=== PATIENT | male | born 1955 | race Caucasian/White ===

== ENCOUNTER 2020-09-11 08:19 | Day surgery (SDC) | payer MEDICARE ==
[~2020-09-11] VITALS: Ht 168.9 cm; Wt 79.0 kg
[~2020-09-11 08:19] MED LIST: ACETAMINOPHEN 500 MG TABLET PO PRN; BUPIVACAINE-EPI 0.25%-1:200000 MPF 30 ML VIAL. ONE; HYDROmorphone 2 MG/ML VIAL IVP PRN; IV RINGERS,LACTATED 1000ML 1,000 ML IV SCH; LISI1TAB20 PO; MINERAL OIL for SURGERY 10 ML VIAL. MC ONE; MORPHINE SULFATE 2 MG/ML INJ. IVP PRN; MULT-245 PO; OMEG1CAP38 PO; PROCHLORPERAZINE 10 MG/2 ML VIAL. IVP PRN; fentaNYL PF VIAL 100 MCG/2 ML VIAL IVP PRN
[2020-09-11] MEDS ORDERED: ROCURONIUM 50 MG/5 ML VIAL. ONE (08:40)
[2020-09-11] MEDS ORDERED: SEVOFLURANE 61 TO 120 MINUTES. IH ONE (08:40)
[2020-09-11] MEDS ORDERED: KETOROLAC 30 MG/ML VIAL. ONE (08:41)
[2020-09-11] MEDS ORDERED: ONDANSETRON PF 4 MG/2 ML VIAL. ONE ×2 (08:41→12:15)
[2020-09-11] MEDS ORDERED: LIDOCAINE 2% PF 5 ML VIAL. ONE ×2 (08:41→11:23)
[2020-09-11] MEDS ORDERED: DEXAMETHASONE SOD PHOS 4 MG/ML VIAL ONE (08:41)
[2020-09-11] MEDS ORDERED: fentaNYL PF VIAL 100 MCG/2 ML VIAL ONE (08:41)
[2020-09-11] MEDS ORDERED: PROPOFOL 10 MG/ML (20ML) VIAL. IV ONE (08:41)
[2020-09-11] MEDS ORDERED: NEOSTIGMINE METHYLSULFATE 5 MG/5 ML SYRINGE. ONE (08:42)
[2020-09-11] MEDS ORDERED: GLYCOPYRROLATE 1 MG/5 ML VIAL. ONE (08:42)
[2020-09-11] MEDS ORDERED: SUCCINYLCHOLINE 200 MG/10 ML VIAL. ONE (09:22)
[2020-09-11] MEDS ORDERED: ESMOLOL 100 MG/10 ML VIAL. IVP ONE (10:23)
[2020-09-11] MEDS ORDERED: PHENYLEPHRINE in 0.9% NACL PF 1 MG/10 ML SYRINGE. IV ONE (10:23)
[2020-09-11] MEDS ORDERED: ePHEDrine PF IN SALINE 50 MG/10 ML SYRINGE. IV ONE (10:36)
--- NOTE | 2020-09-11 11:31 | PDOC4 ---
Operative Note Operative Note Date: September 112020 at 1130 Preoperative diagnosis: Right inguinal hernia Postoperative diagnosis: Same Procedure: Robotic assisted laparoscopic right inguinal hernia repair with mesh Surgeon: Marco Specimen: None Dictation: Patient is a 65-year-old gentleman with complaints of a right groin bulge and pain. The procedure of robotic assisted laparoscopic right inguinal hernia repair with mesh was explained to the patient in detail risk benefits were also discussed including bleeding infection injury to intra-abdominal contents possible necessitating further open operations alternatives to this procedure also discussed with the patient who seemed to understand and gave a verbal and written consent to have procedure performed. Patient was taken to the operating room placed in the supine position general anesthesia was in itiated once patient was sleeping intubated placed in low lithotomy positioning and his abdomen was prepped and draped usual sterile fashion using ChloraPrep. An area just above the umbilicus was injected quarter percent Marcaine with epinephrine incision was made 11 blade scalpel and a varies needle was placed within the abdomen creating pneumoperitoneum once this complete 8 mm da Agustin port was placed in the 8 mm camera was placed within the abdomen which was inspected and was noted that he had incarcerated right inguinal hernia with actually some right colon involved. 8 mm da Agustin port was placed in the right midabdomen 8 mm da Agustin port was placed in left midabdomen the da Agustin robot was brought and docked all port sites surgeon went to the robotic console using grasper and Endo Luke scissors the peritoneum on the right side was incised a flap was propagated posteriorly reducing the hernia sac and contents. A large 3D max mesh was placed over the hernia defect. Using 3-0 Vicryl single interrupted sutures were used to tack the superior border of the mesh to the abdominal wall as well as to Rocco's ligament. The peritoneum was then closed over the mesh with a running 2 OV lock absorbable suture. Sutures removed from the abdomen and the robot was undocked from all port sites all ports were removed the pneumoperitoneum was reduced all port sites were closed for subcuticular Monocryl Mastisol Steri-Strips and island dressings were applied. Patient was awakened and extubated in the operating room taken to recovery in stable condition all sponge instrument needle counts listed as correct estimated blood loss 5 mL TRINA LERMA MD Sep 11, 2020 11:30
[2020-09-11] MEDS ORDERED: OXYC1TAB15 PO (11:33)
--- NOTE | 2020-09-11 11:34 | DISCH ---
DISCHARGE INSTRUCTIONS Condition on Discharge Condition on Discharge: Stable Activity After Discharge Activity Instructions for Disc: Avoid exertion Other activity instructions: No lifting more than 20 pounds for 2 weeks Diet after Discharge Diet after Discharge: Regular Wound Incision Care Other wound/incision instructi: May shower in 24 hours Contacting the DRCesar after DC Call your doctor for: If your condition worsens Follow-Up Follow up with: Dr. Lerma in 2 weeks TRINA LERMA MD Sep 11, 2020 11:34
[2020-09-11] MEDS ORDERED: oxyCODONE/APAP 5/325 1 TAB TABLET PO ONE (12:15)
[2020-09-11] MEDS ORDERED: ONDANSETRON PF 4 MG/2 ML VIAL. IVP ONE (12:30)
[2020-09-11 13:46] VITALS: BP 120/70
== END 2020-09-11 14:00 | disposition home or self-care (01) ==
LOC: SURG 08:19
PROVIDERS: ATTEND Surgery
DX: K40.90 Unilateral inguinal hernia, without obstruction or gangrene, not specified as recurrent (principal); I10 Essential (primary) hypertension; K21.9 Gastro-esophageal reflux disease without esophagitis; Z85.828 Personal history of other malignant neoplasm of skin; Z79.899 Other long term (current) drug therapy; Z98.890 Other specified postprocedural states; Z87.891 Personal history of nicotine dependence; Z72.89 Other problems related to lifestyle
CPT/HCPCS: 49650; J0690; J1100; J1885; J2370; J2405; J2704; J2710; J3010; J3490; S2900; A4364; A4657; A4930; A6219; C1781; J0330